=== PATIENT | female | born 1935 | race Asian ===

== ENCOUNTER 2017-01-21 10:49 | Inpatient (IN) | payer OTHER ==
[~2017-01-21] VITALS: Ht 152.4 cm; Wt 62.3 kg
[~2017-01-21 10:49] MED LIST: GLU5XL PO; LAC PO; LEXAPRO10 MG PO; LIPI20 PO; LISINOPRIL20 MG PO; LORAZEPAM0.5 MG PO; MELATONIN3 MG PO; MOBIC7.5 MG PO; MULTI-VITAMINS1 TAB PO; ROC1I IV; SER25 PO; TENORMIN50 MG PO; TRAMADOL HCL50 MG PO
[2017-01-21 11:42] LABS: CALCIUM 8.3 mg/dL (8.5-10.1); CARBON DIOXIDE 31.5 mmol/L (21-32); CHLORIDE SERUM 104 mmol/L (98-107); GLUCOSE SERUM 192 mg/dL (74-106); POTASSIUM SERUM 4.3 mmol/L (3.5-5.1); SODIUM SERUM 140 mmol/L (136-145)
[2017-01-21 11:47] LABS: ALKALINE PHOSPHATASE 52 U/L (46-116); ALT/SGPT 19 U/L (14-59); AST/SGOT 16 U/L (15-37); BILIRUBIN TOTAL 0.51 mg/dL (0.20-1.00); TOTAL PROTEIN, SERUM 6.8 g/dL (6.4-8.2)
[2017-01-21 11:48] LABS: ALBUMIN 3.3 g/dL (3.4-5.0)
[2017-01-21 11:49] LABS: BASOPHIL % 0.7 % (0-2); PLATELET COUNT 171 x10^3mcL (130-400)
[2017-01-21 11:52] LABS: RED CELL DISTRIBUTION WIDTH 15.4 % (11.5-14.5)
[2017-01-21 12:36] LABS: UA SPECIFIC GRAVITY 1.015 (1.005-1.035); microscopic required? YES; urine erythrocyte TRACE (NEGATIVE)
[2017-01-21] MEDS ORDERED: NOR5 PO (14:10)
[2017-01-21] MEDS ORDERED: ATENOLOL50 MG PO (14:11)
[2017-01-21] MEDS ORDERED: ASPIR LOW81 MG PO (14:11)
[2017-01-21] MEDS ORDERED: LIPI20 PO (14:12)
[2017-01-21] MEDS ORDERED: GLUCOTROL5 MG PO (14:13)
[2017-01-21] MEDS ORDERED: ESCITALOPRAM10 M1 PO (14:13)
[2017-01-21] MEDS ORDERED: MELATONIN3 MG PO (14:14)
[2017-01-21] MEDS ORDERED: ZESTRIL20 MG PO (14:14)
[2017-01-21] MEDS ORDERED: METFORMIN HYDR500 M1 PO (14:15)
[2017-01-21] MEDS ORDERED: MELOXICAM7.5 M1 PO (14:15)
[2017-01-21] MEDS ORDERED: SEROQUEL25 MG PO (14:16)
[2017-01-21] MEDS ORDERED: GOOD SENSE OMEP20 MG PO (14:16)
[2017-01-21] MEDS ORDERED: NOVOLIN N100 U/ML SC (14:16)
[2017-01-21] MEDS ORDERED: BETIMOL5 M1 OU (14:17)
[2017-01-21] MEDS ORDERED: TRAMADOL HCL50 MG PO (14:18)
[2017-01-21] MEDS ORDERED: LORAZEPAM1 POW (14:18)
[2017-01-21 15:19] VITALS: BP 125/68
[2017-01-21 17:10] LABS: T3 TOTAL 0.83 ng/mL
[2017-01-21 17:18] LABS: CHOLESTEROL/HDL RATIO 3.3; MAGNESIUM 2.1 mg/dL (1.8-2.4); PHOSPHOROUS 3.7 mg/dL (2.5-4.9)
[2017-01-21 17:31] LABS: FREE T4 0.89 ng/dL (0.76-1.46); FREE THYROXINE INDEX 1.9 ug/dL (1.4-4.5); T4(THYROXINE) 5.2 ug/dL (4.7-13.3)
[2017-01-21 18:12] VITALS: BP 127/70
[2017-01-21 22:09] VITALS: BP 150/62
[2017-01-21] MEDS ORDERED: METOPROLOL TART50 MG PO (23:25)
[2017-01-22 07:42] LABS: CALCIUM 8.7 mg/dL (8.5-10.1); CARBON DIOXIDE 28.2 mmol/L (21-32); CHLORIDE SERUM 108 mmol/L (98-107); CREATININE SERUM 0.8 mg/dL (0.6-1.0); GLUCOSE SERUM 172 mg/dL (74-106); PHOSPHOROUS 3.1 mg/dL (2.5-4.9); POTASSIUM SERUM 3.5 mmol/L (3.5-5.1); SODIUM SERUM 145 mmol/L (136-145)
[2017-01-22 07:45] LABS: BASOPHIL % 0.5 % (0-2); PLATELET COUNT 166 x10^3mcL (130-400)
[2017-01-22 07:59] LABS: RED CELL DISTRIBUTION WIDTH 15.2 % (11.5-14.5)
[2017-01-22 08:30] VITALS: BP 152/86
[2017-01-22 09:00] VITALS: BP 152/86
[2017-01-22 13:01] VITALS: BP 139/58
[2017-01-23 06:00] LABS: BASOPHIL % 0.5 % (0-2); PLATELET COUNT 167 x10^3mcL (130-400)
[2017-01-23 06:12] LABS: CALCIUM 8.3 mg/dL (8.5-10.1); CARBON DIOXIDE 27.5 mmol/L (21-32); CHLORIDE SERUM 110 mmol/L (98-107); CREATININE SERUM 0.9 mg/dL (0.6-1.0); GLUCOSE SERUM 93 mg/dL (74-106); POTASSIUM SERUM 3.8 mmol/L (3.5-5.1); SODIUM SERUM 144 mmol/L (136-145)
[2017-01-23 06:44] LABS: RED CELL DISTRIBUTION WIDTH 15.4 % (11.5-14.5)
[2017-01-23 07:06] VITALS: BP 125/57
[2017-01-23 09:03] VITALS: BP 115/48
[2017-01-23 10:05] VITALS: BP 115/48
== END 2017-01-23 10:39 | DRG 56 ==
LOC: ED 10:49 → DU 13:18
PROVIDERS: Emergency Medicine; ADMIT Family Medicine
DX: G30.9 Alzheimer's disease, unspecified (principal); G93.41 Metabolic encephalopathy; E44.1 Mild protein-calorie malnutrition; R55 Syncope and collapse; E86.0 Dehydration; F02.80 Dementia in other diseases classified elsewhere, unspecified severity, without behavioral disturbance, psychotic disturbance, mood disturbance, and anxiety; E11.65 Type 2 diabetes mellitus with hyperglycemia; E11.51 Type 2 diabetes mellitus with diabetic peripheral angiopathy without gangrene; I10 Essential (primary) hypertension; I51.7 Cardiomegaly; K21.9 Gastro-esophageal reflux disease without esophagitis; E78.5 Hyperlipidemia, unspecified; F32.9 Major depressive disorder, single episode, unspecified; G47.00 Insomnia, unspecified; E66.3 Overweight; Z68.26 Body mass index [BMI] 26.0-26.9, adult; Z79.82 Long term (current) use of aspirin; Z79.4 Long term (current) use of insulin; Z79.84 Long term (current) use of oral hypoglycemic drugs
CPT/HCPCS: 82962; 83880; 84439; G0480; J1630; J7030; Q0092

== ENCOUNTER 2018-02-22 14:43 | Inpatient (IN) | payer OTHER ==
[~2018-02-22] VITALS: Ht 149.9 cm; Wt 63.2 kg
[~2018-02-22 14:43] MED LIST changes: +ASPIR LOW81 MG PO; +ATENOLOL50 MG PO; +BETIMOL5 M1 OU; +ESCITALOPRAM10 M1 PO; +GLUCOTROL5 MG PO; +GOOD SENSE OMEP20 MG PO; +LORAZEPAM1 POW; +MELOXICAM7.5 M1 PO; +METFORMIN HYDR500 M1 PO; +METOPROLOL TART50 MG PO; +NOR5 PO; +NOVOLIN N100 U/ML SC; +SEROQUEL25 MG PO; +ZESTRIL20 MG PO
[2018-02-22 15:00] VITALS: Ht 149.9 cm; Wt 63.2 kg
[2018-02-22 15:30] LABS: BASOPHIL % 0.4 % (0-2); PLATELET COUNT 157 x10^3mcL (130-400)
[2018-02-22 15:35] LABS: CALCIUM 8.5 mg/dL (8.5-10.1); CARBON DIOXIDE 32.4 mmol/L (21-32); CHLORIDE SERUM 103 mmol/L (98-107); GLUCOSE SERUM 179 mg/dL (74-106); POTASSIUM SERUM 4.2 mmol/L (3.5-5.1); SODIUM SERUM 140 mmol/L (136-145)
[2018-02-22 15:38] LABS: RED CELL DISTRIBUTION WIDTH 14.9 % (11.5-14.5)
[2018-02-22 15:40] LABS: ALKALINE PHOSPHATASE 52 U/L (46-116); ALT/SGPT 27 U/L (14-59); AST/SGOT 26 U/L (15-37); BILIRUBIN TOTAL 0.41 mg/dL (0.20-1.00); TOTAL PROTEIN, SERUM 7.1 g/dL (6.4-8.2)
[2018-02-22 15:42] LABS: ALBUMIN 3.2 g/dL (3.4-5.0)
[2018-02-22 17:28] LABS: UA SPECIFIC GRAVITY 1.015 (1.005-1.035); microscopic required? YES; urine erythrocyte TRACE (NEGATIVE)
[2018-02-22 17:33] LABS: AMPHETAMINE QUAL UR NONE DETECTED (See below)
[2018-02-23 12:24] LABS: MAGNESIUM 1.8 mg/dL (1.8-2.4); PHOSPHOROUS 2.8 mg/dL (2.5-4.9)
[2018-02-23 12:26] LABS: CHOLESTEROL/HDL RATIO 5.9
[2018-02-23 19:57] VITALS: BP 122/43
[2018-02-24 05:57] VITALS: BP 131/66
[2018-02-24 07:05] LABS: BASOPHIL % 0.3 % (0-2)
[2018-02-24 07:08] LABS: PLATELET COUNT 122 x10^3mcL (130-400); RED CELL DISTRIBUTION WIDTH 14.7 % (11.5-14.5)
[2018-02-24 07:17] LABS: CARBON DIOXIDE 29.6 mmol/L (21-32); CHLORIDE SERUM 105 mmol/L (98-107); CREATININE SERUM 0.8 mg/dL (0.6-1.0); GLUCOSE SERUM 152 mg/dL (74-106); POTASSIUM SERUM 3.6 mmol/L (3.5-5.1); SODIUM SERUM 141 mmol/L (136-145)
[2018-02-24 08:30] VITALS: BP 122/44
[2018-02-24 17:20] VITALS: BP 147/56
[2018-02-24 21:15] VITALS: BP 120/37
[2018-02-25 06:18] LABS: BASOPHIL % 0.4 % (0-2)
[2018-02-25 06:37] LABS: PLATELET COUNT 117 x10^3mcL (130-400)
[2018-02-25 06:44] LABS: CALCIUM 7.8 mg/dL (8.5-10.1); CARBON DIOXIDE 27.1 mmol/L (21-32); CHLORIDE SERUM 107 mmol/L (98-107); CREATININE SERUM 0.8 mg/dL (0.6-1.0); GLUCOSE SERUM 134 mg/dL (74-106); MAGNESIUM 1.9 mg/dL (1.8-2.4); PHOSPHOROUS 2.8 mg/dL (2.5-4.9); POTASSIUM SERUM 3.4 mmol/L (3.5-5.1); SODIUM SERUM 143 mmol/L (136-145)
[2018-02-25 07:00] VITALS: BP 101/52
[2018-02-25 14:15] VITALS: BP 155/65
[2018-02-25 18:45] VITALS: BP 137/90
[2018-02-25 22:14] VITALS: BP 147/71
[2018-02-26 05:50] VITALS: BP 130/54
[2018-02-26 06:55] LABS: BASOPHIL % 0.4 % (0-2); PLATELET COUNT 131 x10^3mcL (130-400)
[2018-02-26 06:57] LABS: CALCIUM 8.1 mg/dL (8.5-10.1); CARBON DIOXIDE 27.5 mmol/L (21-32); CHLORIDE SERUM 109 mmol/L (98-107); CREATININE SERUM 0.9 mg/dL (0.6-1.0); GLUCOSE SERUM 149 mg/dL (74-106); MAGNESIUM 1.7 mg/dL (1.8-2.4); POTASSIUM SERUM 3.7 mmol/L (3.5-5.1); SODIUM SERUM 140 mmol/L (136-145)
[2018-02-26 07:07] LABS: RED CELL DISTRIBUTION WIDTH 14.7 % (11.5-14.5)
[2018-02-26 09:04] VITALS: BP 139/52
[2018-02-26 20:27] VITALS: BP 126/69
[2018-02-27 05:57] VITALS: BP 139/71
[2018-02-27 07:12] LABS: CALCIUM 8.1 mg/dL (8.5-10.1); CARBON DIOXIDE 28.7 mmol/L (21-32); CHLORIDE SERUM 106 mmol/L (98-107); GLUCOSE SERUM 149 mg/dL (74-106); MAGNESIUM 2.1 mg/dL (1.8-2.4); POTASSIUM SERUM 3.9 mmol/L (3.5-5.1); SODIUM SERUM 139 mmol/L (136-145)
[2018-02-27 08:58] VITALS: BP 149/75
[2018-02-27 09:08] LABS: BASOPHIL % 0.7 % (0-2); PLATELET COUNT 132 x10^3mcL (130-400); RED CELL DISTRIBUTION WIDTH 14.8 % (11.5-14.5)
[2018-02-27 17:25] VITALS: BP 111/68
[2018-02-27 20:04] VITALS: BP 127/60
[2018-02-27 22:49] VITALS: BP 130/64
[2018-02-28 04:46] VITALS: BP 131/56
[2018-02-28 09:43] VITALS: BP 127/55
[2018-02-28 16:09] VITALS: BP 116/61
[2018-02-28 19:54] VITALS: BP 126/58
[2018-03-01 05:45] VITALS: BP 138/65
[2018-03-01 11:29] VITALS: BP 125/51
[2018-03-01 17:00] VITALS: BP 124/69
[2018-03-01 20:36] VITALS: BP 134/73
[2018-03-02 05:44] VITALS: BP 118/67
[2018-03-02 06:58] LABS: BASOPHIL % 0.6 % (0-2); PLATELET COUNT 200 x10^3mcL (130-400)
[2018-03-02 07:00] LABS: RED CELL DISTRIBUTION WIDTH 14.9 % (11.5-14.5)
[2018-03-02 07:03] LABS: CALCIUM 8.6 mg/dL (8.5-10.1); CARBON DIOXIDE 26.5 mmol/L (21-32); CHLORIDE SERUM 105 mmol/L (98-107); CREATININE SERUM 0.9 mg/dL (0.6-1.0); GLUCOSE SERUM 189 mg/dL (74-106); SODIUM SERUM 141 mmol/L (136-145)
[2018-03-02 09:00] VITALS: BP 114/62
[2018-03-02 19:47] VITALS: BP 116/62
[2018-03-03 05:59] VITALS: BP 128/58
[2018-03-03 08:49] VITALS: BP 112/56
[2018-03-03] MEDS ORDERED: SEROQUEL25 MG PO (12:04)
[2018-03-03] MEDS ORDERED: SEROQUEL50 M1 PO (12:05)
[2018-03-03 12:11] VITALS: BP 113/60
[2018-03-03 13:18] VITALS: BP 113/60
[2018-03-03 17:19] VITALS: BP 103/53
== END 2018-03-03 18:43 | DRG 689 ==
LOC: ED 14:43 → MU 02-23 10:07
PROVIDERS: Emergency Medicine; ADMIT Internal Medicine
DX: N39.0 Urinary tract infection, site not specified (principal); N17.0 Acute kidney failure with tubular necrosis; G93.41 Metabolic encephalopathy; F03.91 Unspecified dementia, unspecified severity, with behavioral disturbance; R45.851 Suicidal ideations; D68.69 Other thrombophilia; F32.9 Major depressive disorder, single episode, unspecified; E11.65 Type 2 diabetes mellitus with hyperglycemia; E78.5 Hyperlipidemia, unspecified; I10 Essential (primary) hypertension; Z68.21 Body mass index [BMI] 21.0-21.9, adult; Z79.84 Long term (current) use of oral hypoglycemic drugs
CPT/HCPCS: 82962; G0480; J0696; J1630; J1956; J2060; J3475; J7030